=== PATIENT | male | born 1985 | race Two or more races ===

== ENCOUNTER 2018-06-12 00:27 | Emergency (ER) | payer OTHER ==
[~2018-06-12] VITALS: Ht 170.2 cm; Wt 81.6 kg
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
--- NOTE | 2018-06-12 00:30 | NUR ---
DR. BAILEY IS AT THE BEDSIDE SPEAKING TO THE PT.
--- NOTE | 2018-06-12 00:38 | NUR ---
Eleanor CONNOR IS AT THE BEDSIDE.
[2018-06-12] MEDS ORDERED: HYDROCODONE/APAP 5/325MG 1 EACH TABLET ONE (00:46)
--- NOTE | 2018-06-12 00:47 | NUR ---
PT LEFT FOR CT VIA [facility]
[2018-06-12] MEDS ORDERED: HYDROCODONE/APAP 5/325MG 1 EACH TABLET PO ONE (01:00)
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
[2018-06-12 01:52] VITALS: BP 132/78
== END 2018-06-12 01:54 | disposition home or self-care (01) ==
LOC: ER 00:28
DX: S13.4XXA Sprain of ligaments of cervical spine, initial encounter (principal); S63.592A Other specified sprain of left wrist, initial encounter; S20.211A Contusion of right front wall of thorax, initial encounter; M25.511 Pain in right shoulder; V49.49XA Driver injured in collision with other motor vehicles in traffic accident, initial encounter; Y93.89 Activity, other specified; Y92.413 State road as the place of occurrence of the external cause; Y99.8 Other external cause status
CPT/HCPCS: 71045; 72050; 73030; 73110; 99283; A4606